=== PATIENT | female | born 1995 | race Caucasian/White ===

== ENCOUNTER → 2023-09-19 09:21 | Outpatient (CLI) | payer OTHER, SELFPAY ==
--- NOTE | 2023-09-19 09:25 | DI.RAD.S_ITS ---
PROCEDURE: XR CERVICAL SPINE 2V OR 3V INDICATIONS: arthritis TECHNIQUE: 3 view(s) of the cervical spine were acquired. COMPARISON: None. FINDINGS: Bones: No fractures or dislocations to the T1 level. The lateral masses of C1 appear intact on the odontoid view. No suspicious bony lesions. There is straightening of cervical lordosis. Soft tissues: No prevertebral soft tissue swelling. IMPRESSION: 1. No acute fracture or subluxation. 2. There is straightening of cervical lordosis. This finding can be seen in patients with muscle spasms. Dictated by: Jaron Batista M.D. on 09/19/2023 at 14:08 Approved by: Jaron Batista M.D. on 09/19/2023 at 14:12
--- NOTE | 2023-09-19 09:25 | DI.RAD.S_ITS ---
PROCEDURE: XR LUMBAR SPINE 2-3V INDICATIONS: arthritis TECHNIQUE: 3 views of the lumbar spine were acquired. COMPARISON: None. FINDINGS: Bones: 5 [id number] vertebrae are present. Minimal retrolisthesis of L3 on L4, L4 on L5 and L5 on S1. No vertebral body compression fractures. No suspicious bony lesions. Soft tissues: Overlying bowel gas pattern is normal. No suspicious soft tissue calcifications. IMPRESSION: 1. No acute fracture or subluxation. 2. Minimal retrolisthesis of L3 on L4, L4 on L5 and L5 on S1. Dictated by: Jaron Batista M.D. on 09/19/2023 at 14:30 Approved by: Jaron Batista M.D. on 09/19/2023 at 14:36
--- NOTE | 2023-09-19 09:25 | DI.RAD.S_ITS ---
PROCEDURE: XR THORACIC SPINE 2V INDICATIONS: arthritis TECHNIQUE: 3 views of the thoracic spine were acquired. COMPARISON: None. FINDINGS: Bones: No fractures or dislocations. No suspicious bony lesions. 12 pairs of ribs are noted, and appear intact where visualized. Soft tissues: No paravertebral stripe thickening. 0.6 cm calcified granuloma within the left lower lung zone. IMPRESSION: Normal thoracic spine. Dictated by: Jaron Batista M.D. on 09/19/2023 at 14:12 Approved by: Jaron Batista M.D. on 09/19/2023 at 14:29
== END ==
LOC: RAD 09:23
PROVIDERS: Referring Provider Chiropractor; Visit Provider Chiropractor
DX: M13.80 Other specified arthritis, unspecified site (principal)
CPT/HCPCS: 72040; 72070; 72100